=== PATIENT | female | born 1985 | race Caucasian/White ===

== ENCOUNTER 2019-01-29 10:49 | Inpatient (IN) | payer OTHER ==
[2019-01-29] MEDS ORDERED: AMMONIA AROMATIC 1 EACH AMP IH PRN (11:40)
[2019-01-29] MEDS ORDERED: TERBUTALINE SULFATE 1 MG/ML VIAL IV PRN (11:40)
[2019-01-29] MEDS ORDERED: MISOPROSTOL 200 MCG TAB PO PRN (11:40)
[2019-01-29] MEDS ORDERED: OLIVE OIL 118 ML BTL MISC PRN (11:40)
[2019-01-29] MEDS ORDERED: EPSOM SALT 454 GM TP PRN (11:40)
[2019-01-29] MEDS ORDERED: LR 1,000 ML IV PRN (11:40)
[2019-01-29] MEDS ORDERED: OXYTOCIN/RINGERS LACTATE 1,000 ML IV PRN (11:40)
[2019-01-29] MEDS ORDERED: IBUPROFEN 600 MG TAB PO PRN (11:40)
[2019-01-29] MEDS ORDERED: LIDOCAINE 1% 300 MG/30 ML SDV SC PRN (11:40)
[2019-01-29 12:21] LABS: PLATELET COUNT 199 10^3/uL (150-400)
[2019-01-29] MEDS ORDERED: LIDOCAINE 1% 300 MG/30 ML SDV ONE (12:33)
[2019-01-29] MEDS ORDERED: AMMONIA AROMATIC 1 EACH AMP IH ONE (12:33)
[2019-01-29] MEDS ORDERED: TERBUTALINE SULFATE 1 MG/ML VIAL ONE (12:33)
[2019-01-29] MEDS ORDERED: OLIVE OIL 118 ML BTL MISC ONE (12:33)
[2019-01-29] MEDS ORDERED: MISOPROSTOL 200 MCG TAB ONE (12:33)
[2019-01-29] MEDS ORDERED: OXYTOCIN 10 UNIT/ML VIAL ONE (12:33)
[2019-01-29] MEDS: MISOPROSTOL 50 MCG CAP PO PRN ×2 (12:36→16:35)
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
[2019-01-29] MEDS ORDERED: fentaNYL 200 MCG, BUPIVACAINE 0.5% 20 ML in NS 100 ML EP SCH (22:30)
--- NOTE | 2019-01-29 22:54 | OBPROG ---
Labor Progress Note Assessment/Plan: Assessment: 33 y/o G1 at 39.3 weeks ega Prolonged ROM - SROM 1600 01/28/19 VSS - afebrile Cat 1 EFM Contractions q 2-4 mod after 2 doses of cytotec, last dose 1630 SVE at 2030 - 3/90/-2 Requesting epidural for pain Plan: Anesthesia notified and en route Limited vaginal exams Monitor temp q 2 hours Anticipate 01/29/19 22:49 Subjective/Intrapartum Course: 01/29/19 22:49 Feeling more uncomfortable with contractions. Requesting epidural Objective: 01/29/19 12:10 Patient ABO/Rh O POSITIVE 01/29/19 12:10 - SVE Dilation (cm): 3 Effacement (%): 90 Station: -2 Membranes: SROM Amniotic Fluid Color: Clear - Contraction Pattern Assessment Current Contraction Pattern: Regular - Physical Exam General Appearance: WD/WN, alert Neck: non-tender Respiratory: normal breath sounds Cardiac/Chest: regular rate, rhythm Skin: normal color, warm/dry Neuro/Psych: alert, normal mood/affect, oriented x 3 Oxytocin Orders Assessment - Pre-Induction/Augmentation Assessment Gestational Age: 39 week(s) and 3 day(s) ICD10 Worksheet Patient Problems: Problems Problem Status Onset Premature rupture of membranes (PROM) affecting first Acute
[2019-01-29] MEDS ORDERED: PHENYLEPHRINE HCL 100 MCG/ML SYR ONE (22:55)
[2019-01-29] MEDS ORDERED: fentaNYL 100 MCG/2 ML INJ ONE (22:55)
[2019-01-29] MEDS ORDERED: BUPIVACAINE 0.25% 10 ML SDV ONE (22:55)
--- NOTE | 2019-01-29 23:29 | PDANEPAE ---
ANE History of Present Illness term, 3 cm induction for ROM requesting epidural ANE Past Medical History - Cardiovascular History Hx Hypertension: No Hx Arrhythmias: No - Pulmonary History Hx Asthma/Reactive Airway Disease: No Hx Oxygen in Use at Home: No Hx Sleep Apnea: No - Endocrine History Hx Diabetes: No ANE Review of Systems Review of Systems: ANE Patient History - Allergies Allergies/Adverse Reactions: Penicillins Allergy (Mild, Verified 01/29/19 11:33) - Home Medications Home Medications: Bcp 01/04/10 [Last Taken Unknown] Ashwagandha 01/29/19 [Last Taken 01/28/19 18:00] B-12 01/29/19 [Last Taken 01/28/19 14:00] Fish Oil 1,000 mg Softgel 01/29/19 [Last Taken 01/28/19 14:00] Magnesium 01/29/19 [Last Taken 01/28/19 21:00] 01/29/19 [Last Taken 01/29/19 10:00] Probiotic 01/29/19 [Last Taken 01/28/19 14:00] T3 01/29/19 [Last Taken 01/29/19 07:00] Ursodiol 01/29/19 [Last Taken 01/27/19 1800] Vitamin D3 01/29/19 [Last Taken 01/28/19 14:00] - Smoking Hx Smoking Status: Never smoked ANE Labs/Vital Signs - Labs Result Diagrams: 01/29/19 12:10 - Vital Signs Height: 170.18 cm Weight: 83.915 kg ANE Physical Exam - Airway Neck exam: FROM Mallampati Score: Class 2 Mouth exam: normal dental/mouth exam - Pulmonary Pulmonary: no respiratory distress - Cardiovascular Cardiovascular: regular rate and rhythym - ASA Status ASA Status: II ANE Anesthesia Plan Anesthesia Plan: epidural (with PCEA)
[2019-01-29] MEDS ORDERED: fentaNYL 2MCG/ML/BUP 0.1% RTU 100 ML EP SCH (23:30)
[2019-01-29] MEDS ORDERED: LR 500 ML IV SCH (23:30)
[2019-01-29] MEDS ORDERED: LR 500 ML IV PRN (23:41)
[2019-01-29] MEDS ORDERED: OXYTOCIN/RINGERS LACTATE 500 ML IV SCH (23:45)
--- NOTE | 2019-01-30 02:30 | OBPROG ---
Labor Progress Note Assessment/Plan: Assessment: 33 y/o G1 at 39.3 weeks ega Prolonged ROM - SROM 1600 01/28/19 VSS - afebrile temp 99.6 Cat 2 EFM baseline 160s, mod variability, accels with intermittent variables Contractions q 2-3 complete and pushing well with good descent Plan: Anticipate imminent delivery Continue to monitor temp closely due to raising heart rate baseline 01/29/19 22:49 01/30/19 02:28 Subjective/Intrapartum Course: 01/29/19 22:49 Feeling more uncomfortable with contractions. Requesting epidural 01/30/19 02:27 Complete and pushing with coaching Objective: 01/29/19 12:10 Patient ABO/Rh O POSITIVE 01/29/19 12:10 - SVE Dilation (cm): 10 Station: +1 Membranes: SROM Amniotic Fluid Color: Clear - Contraction Pattern Assessment Current Contraction Pattern: Regular Oxytocin Orders Assessment - Pre-Induction/Augmentation Assessment Gestational Age: 39 week(s) and 3 day(s) ICD10 Worksheet Patient Problems: Problems Problem Status Onset Premature rupture of membranes (PROM) affecting first Acute
[2019-01-30] MEDS ORDERED: METHYLERGONOVINE MAL 0.2 MG/ML INJ ONE (03:08)
--- NOTE | 2019-01-30 03:36 | OBDEL ---
Info Type: Vaginal Presentation at Delivery: Vertex L&D Analgesia/Anesthesia Type: Epidural GBS+: No Intrapartum Medications: Generic Name Dose Route Start Last Admin Trade Name Freq PRN Reason Stop Dose Admin Lactated Ringer's 1,000 mls @ 0 mls/hr 01/29/19 11:40 01/29/19 23:20 Lr IV 01/30/19 11:39 1,000 mls PRN PRN Administration SEE PROTOCOL CONDITIONS Protocol Per Protocol Fentanyl 200 mcg/ Bupivacaine 100 mls @ 0 mls/hr 01/29/19 22:30 01/29/19 23: 15 HCl 20 ml/ Sodium Chloride EP 02/08/19 22:29 100 mls CONT JACOB Administration Protocol As Directed Misoprostol 50 mcg 01/29/19 11:42 01/29/19 16:35 Cytotec PO 07/28/19 11:41 50 mcg PRN PRN Administration Achieve Desired Sedation - Hospital Course Intrapartum: 01/29/19 22:49 Feeling more uncomfortable with contractions. Requesting epidural 01/30/19 02:27 Complete and pushing with coaching Indications for Delivery: SROM Vaginal Delivery - Delivery Provider Delivery Physician/CNM: Vane Xiong - Labor and Delivery Onset of Contractions Date: 01/29/19 Onset of Contractions Time: 20:30 Onset of Contractions Type: Induced Rupture of Membranes Date: 01/28/19 Rupture of Membranes Time: 16:00 Rupture of Membranes Type: Spontaneous Amniotic Fluid Color: Clear Dilation Complete Date: 01/30/19 Dilation Complete Time: 02:05 Placenta Delivery Date: 01/30/19 Placenta Delivery Time: 03:07 Total Hours of Labor: 6 Laceration: Other (Specify) (left labial) Repair: 4-0, Vicryl Vaginal Sponge Count Correct: Yes Vaginal Needle Count Correct: Yes Vaginal Sweep Performed: Yes EBL: 450 Delivery Comment: Cytotec 1000 mg OK and Methergine .2 mg IM given for excess bleeding after placenta delivered. Large amt of clots cleared from lower uterine segment. Fundus firm and bleeding wnl at end of procedure. - Medications Labor Augmentation/Induction Methods Used: Misoprostol Labor Augmentation/Induction Indication: Inadequate Contraction Frequency, Inadequate Contraction Strength, Other (Specify) (prolonged ROM) [employer] Data DAVID: 02/02/19 Gestational Age: 39 week(s) and 4 day(s) Latif Delivery Date: 01/30/19 Delivery Time: 03:07 Sex of : Male Score (1 Min): 9 Score (5 Min): 9 ICD10 Worksheet Patient Problems: Problems Problem Status Onset Premature rupture of membranes (PROM) affecting first Acute Vaginal delivery Acute - ICD10 Problem Qualifiers (1) Vaginal delivery
[2019-01-30] MEDS ORDERED: HYDROCORTISONE 0.5% CREAM TP PRN (03:38)
[2019-01-30] MEDS ORDERED: HYDROCODONE/APAP 5/325 TAB PO PRN (03:38)
[2019-01-30] MEDS ORDERED: SIMETHICONE 80 MG TAB CHEW PO PRN (03:38)
[2019-01-30] MEDS ORDERED: MEASLES,MUMPS&RUBELLA VACC/PF 0.5 ML VIAL SC ONE (03:39)
[2019-01-30] MEDS: FERROUS SULFATE 325 MG TAB PO SCH ×2 (09:22→20:59)
--- NOTE | 2019-01-30 10:06 | POSTANESTH ---
Post Anesthetic Evaluation Cardiovascular Status: Normal, Stable Respiratory Status: Normal, Stable Level of Consciousness/Mental Status: Can Participate in Eval Pain Control: Adequate, Prn Tx Ordered Nausea/Vomiting Control: Adequate, Prn Tx Ordered Complications Possibly Related to Anesthesia: None Noted (Delivery without diff , epidural worked well.)
[2019-01-30] MEDS: IBUPROFEN 600 MG TAB PO PRN ×2 (16:33→22:31)
[2019-01-31] MEDS: IBUPROFEN 600 MG TAB PO PRN ×3 (06:03→19:13)
[2019-01-31] MEDS: DOCUSATE SODIUM 100 MG CAP PO PRN ×2 (10:00→22:54)
[2019-01-31] MEDS: FERROUS SULFATE 325 MG TAB PO SCH ×2 (10:00→22:54)
[2019-01-31] MEDS: ACETAMINOPHEN 325 MG TAB PO PRN ×3 (10:00→22:54)
--- NOTE | 2019-01-31 10:22 | OBPP ---
Progress Note Assessment/Plan: Assessment: 1. 2. PP day # 1 3. Breast feeding Plan: 1. d/c home tomorrow 2. support today. 01/31/19 10:17 Objective: 01/31/19 06:15 Patient ABO/Rh O POSITIVE 01/29/19 12:10 Temp Pulse Resp BP Pulse Ox 36.3 C 81 15 102/63 97 01/31/19 09:13 01/31/19 09:13 01/31/19 09:13 01/31/19 09:13 01/31/19 09:13 VSS Uterine Position/Fundal Height: At Umbilicus Uterine Tone: Firm
[2019-02-01] MEDS: IBUPROFEN 600 MG TAB PO PRN ×2 (01:26→09:15)
[2019-02-01] MEDS: ACETAMINOPHEN 325 MG TAB PO PRN ×2 (05:23→11:42)
[2019-02-01 06:12] VITALS: BP 93/64
[2019-02-01] MEDS ORDERED: EPSOM SALT 454 GM TP ONE (10:13)
--- NOTE | 2019-02-01 10:15 | OBGCSDC ---
General Delivery Information - General Info : 1 Para: 1 Abortions: 0 Type: Vaginal L&D Analgesia/Anesthesia Type: Epidural Admission Date: 01/29/19 Labs: Patient ABO/Rh O POSITIVE 01/29/19 12:10 Hct 30.0 % (38.0-47.0) L 01/31/19 06:15 - Hospital Course Intrapartum: 01/29/19 22:49 Feeling more uncomfortable with contractions. Requesting epidural 01/30/19 02:27 Complete and pushing with coaching : 02/01/19 10:14 S) Pt doing well, reports min pain and bleeding. she is ambulating and voiding without difficulty. She is . She desires discharge home today. O) VSS, afebrile constitutional: WNF, A&Ox3 HEENT: normocephalic, atraumatic, supple Heart: RRR, No murmur Chest: CTA-B Breasts: soft, nontender, not engorged, nipples- sore and red, some cracks noted Abdomen: Soft, nontender Uterus: Firm at U-2 Lochia: Minimal rubra Perineum: Intact, healing well Extremities: Trace edema, and negative Joseph's sign Neuro: Grossly normal A) 33-year-old S/P PPD#2 , will use shield as directed P) Discharge home today Continue , will use shield PRN per recommendation Pelvic rest x6wks Discussed danger signs (infection, preeclampsia, depression, heavy bleeding, etc ) RTO in 2/4/6 weeks Vaginal - Delivery Provider Delivery Physician/CNM: Vane Xiong - Diagnosis Labor: Induced Rupture of Membranes Type: Spontaneous Amniotic Fluid Color: Clear Laceration: Other (Specify) (left labial) Repair: 4-0, Vicryl - Delivery EBL: 450 [place] Data DAVID: 02/02/19 Gestational Age: 39 week(s) and 6 day(s) Latif Delivery Date: 01/30/19 Delivery Time: 03:01 Sex of : Male [place] Weight (gm): 3280 g Score (1 Min): 9 Score (5 Min): 9
[2019-02-01] MEDS: FERROUS SULFATE 325 MG TAB PO SCH (10:40)
== END 2019-02-01 12:00 | disposition home or self-care (01) | DRG 807 ==
LOC: FLD 10:49 → FOB 01-30 07:20
PROVIDERS: ADMIT Advanced Practice Midwife; ATTEND Advanced Practice Midwife
PROC: 10E0XZZ Delivery of Products of Conception, External Approach (ICD-10-PCS; principal; 2019-01-30)
PROC: 0HQ9XZZ Repair Perineum Skin, External Approach (ICD-10-PCS; principal; 2019-01-30)
PROC: 3E0P7GC Introduction of Other Therapeutic Substance into Female Reproductive, Via Natural or Artificial Opening (ICD-10-PCS; principal; 2019-01-30)
DX: O42.12 Full-term premature rupture of membranes, onset of labor more than 24 hours following rupture (principal); O70.0 First degree perineal laceration during delivery; O99.283 Endocrine, nutritional and metabolic diseases complicating pregnancy, third trimester; E03.9 Hypothyroidism, unspecified; Z3A.39 39 weeks gestation of pregnancy; Z37.0 Single live birth
CPT/HCPCS: J2210; J2370; J2590; J3010; J3105